=== PATIENT | female | born 1960 | race Caucasian/White ===

== ENCOUNTER → 2021-05-09 | Outpatient (CLI) | payer BC ==
[~2021-05-09] MED LIST: ASPIRIN CHEWABL81 MG PO; CLINDAMYCIN HC150 MG PO; ECOTRIN81 MG PO; FLOMAX0.4 MG PO; LODINE CAP 300300 MG PO; LOPRESSOR50 MG PO; LOSARTAN-HCTZ1 EAC2 PO; MONTELUKAST SOD10 MG PO; PROTONIX40 MG PO; TYLENOL 500 MG500 MG PO; ZOFRAN ODT 4 MG4 MG PO
== END ==
LOC: HEART 5 14:38
DX: R00.2 Palpitations (principal); I49.3 Ventricular premature depolarization; I07.1 Rheumatic tricuspid insufficiency
CPT/HCPCS: 93306